=== PATIENT | female | born 1925 | race Caucasian/White ===

== ENCOUNTER 2017-02-12 18:34 | Observation (INO) | payer MEDICARE, BC ==
[~2017-02-12] VITALS: Ht 154.9 cm; Wt 57.4 kg
[~2017-02-12 18:34] MED LIST changes: -QUETIAPINE FUMA50 M1 PO; -ZITHROMAX Z-PA250 M2 PO
[2017-02-12 19:50] VITALS: BP 102/62
[2017-02-12 20:01] VITALS: BP 102/62
[2017-02-12] MEDS ORDERED: QUETIAPINE FUMA50 M1 PO (20:34)
[2017-02-12 23:29] VITALS: BP 124/63
[2017-02-13 04:28] VITALS: BP 100/56
[2017-02-13 07:40] VITALS: BP 110/59
[2017-02-13 07:55] VITALS: BP 100/56
--- NOTE | 2017-02-13 07:59 | ACUTE CARE PROGRESS NOTE (QUA) ---
Progress Notes Subjective Date 02/13/17 Time 0758 Note Patient overnight did well. CT for PE protocol unremarkable except for some patchy infiltrates consistent with bronchitis. This morning she feels well. Pulse rate has declined to normal, and her lung thompson are clear, heart regular, abdomen soft Objective Findings Last VS-Temp:98.4 B/P:100/56 Pulse:96 Resp:16 SaO2:95 ROOM AIR Last weight lbs:126 oz:8 K.380 Method:Bed Scales Assessment/Plan Problem List 1. Tachycardia 2. Elevated d-dimer Patient condition Improving, ccheck ultrasound Dopplers of legs, if negative discharge home with coverage for bronchopneumonia. This inpt stay is expected to cross 2 MNs from start of care No at 2156
--- NOTE | 2017-02-13 08:06 | PHARMACY CLINIC NOTE ---
Patient Demographics Patient Demographics Admission date: 02/12/17 Date: 02/13/17 Time: 0806 Allergies Coded Allergies: No Known Allergies (10/18/16) HEIGHT- FT: 5 IN: 1.00 K.380 VTE General Information Disclaimer The following section includes nursing documentation that has been pulled in for pharmacy review. Clinical trial participant? No VTE prophylaxis [id number] VTE prophylaxis ordered? Yes Type of prophylaxis/treatment: Lovenox at 0806
[2017-02-13 08:09] LABS: LYMPH # 3.4 K/mm3 (0.7-4.5); LYMPH % 32.1 % (10-50.0)
[2017-02-13 08:15] LABS: HEMOGLOBIN 11.8 g/dL (12.2-16.2)
--- NOTE | 2017-02-13 09:11 | CARDIOVASCULAR REPORT ---
"Venous Exam Indications: 729.5 Pain in limb. 729.81 Swelling of limb. IMPRESSIONS 1. There is no evidence of significant Reflux. 2. No evidence of deep or superficial vein thrombosis involving the left lower extremity 3. No evidence of deep or superficial vein thrombosis involving the right lower extremity Complete lower extremity venous duplex evaluation. Doppler flow study including spectral analysis, color and quinones scale imaging. Location: Bedside. Patient status: Inpatient. Tables: Venous flow and imaging: + +-------+ + |Location |Overall|Flow properties | + +-------+ + |Right common femoral |Patent |Normal phasicity; spontaneous; | | | |normal augmentation; compressible| + +-------+ + |Right saphenofemoral junction|Patent |Compressible | + +-------+ + |Right profunda femoral |Patent |Compressible | + +-------+ + |Right femoral |Patent |Normal phasicity; spontaneous; | | | |normal augmentation; | | | |compressible; no reflux | + +-------+ + |Right greater saphenous |Patent |Normal phasicity; spontaneous; | | | |normal augmentation; compressible| + +-------+ + |Right popliteal |Patent |Normal phasicity; spontaneous; | | | |normal augmentation; compressible| + +-------+ + |Right posterior tibial |Patent |Compressible | + +-------+ + |Right peroneal |Patent |Compressible | + +-------+ + |Right gastrocnemius |Patent |Compressible | + +-------+ + |Right soleal |Patent |Compressible | + +-------+ + |Left common femoral |Patent |Normal phasicity; spontaneous; | | | |normal augmentation; compressible| + +-------+ + |Left saphenofemoral junction |Patent |Compressible | + +-------+ + |Left profunda femoral |Patent |Compressible | + +-------+ + |Left femoral |Patent |Normal phasicity; spontaneous; | | | |normal augmentation; compressible| + +-------+ + |Left greater saphenous |Patent |Normal phasicity; spontaneous; | | | |normal augmentation; compressible| + +-------+ + |Left popliteal |Patent |Normal phasicity; spontaneous; | | | |normal augmentation; compressible| + +-------+ + |Left posterior tibial |Patent |Compressible | + +-------+ + |Left peroneal |Patent |Compressible | + +-------+ + |Left gastrocnemius |Patent |Compressible | + +-------+ + |Left soleal |Patent |Compressible | + +-------+ + (Report amended ) Electronically signed by: Zia Landaverde [id number]"
--- NOTE | 2017-02-13 09:35 | RADIOLOGY REPORT PS360 ---
CTA-CHEST HISTORY: Dyspnea, abnormal chest x-ray DYSPNEA ORDERING PHYSICIAN: Jose Manuel Syed MD PATIENT AGE: 89 years TECHNIQUE: Helical acquisition obtained following the bolus administration of 60 mL of Isovue 370 followed by a saline bolus. Axial, sagittal, and coronal reformatted images are generated and reviewed. COMPARISON: None FINDINGS: No evidence of pulmonary embolus, aortic aneurysm or aortic dissection. Lung apices are excluded. Soft tissue density is present in the left paratracheal region measuring 2.4 cm probably related to substernal goiter. CT neck with upper chest may confirm. There is some minimal tracheal deviation toward the right. No hilar adenopathy evident. Generalized motion artifact is present somewhat obscuring fine detail of the lungs. There is mild prominence of the interstitium with atelectatic and/or fibrotic changes in the lung bases posteriorly slightly more prominent on the left. No lobar consolidation or collapse or effusion evident. Upper abdominal images are unremarkable. IMPRESSION: 1. No evidence of pulmonary embolus or aortic aneurysm. 2. Anterior mediastinal mass on the left superiorly which could be due to substernal goiter. Adenopathy is also a consideration. Consider CT of the neck to include upper chest for further evaluation. 3. Chronic interstitial changes with mild fibrotic changes in the lung bases.
[2017-02-13] MEDS ORDERED: ZITHROMAX Z-PA250 M2 PO (10:15)
--- NOTE | 2017-02-13 10:17 | DISCHARGE SUMMARY STANDARD ---
Demographics Admit date: 02/12/17 Discharge date: 02/13/17 History of present illness History of present illness Patient was admitted from my office with tachycardia, positive d-dimer for rule out of pulmonary embolism. She denies symptoms, except with slightly more anxious than normal. Please see written H&P in the chart for details. Hospital Course Hospital Course: Patient was admitted,other labs were unremarkable, CT scan of chest with PE protocol was unremarkable except for areas of patchy infiltrate consistent with viral versus atypical bronchopneumonia. Doppler of legs is also negative. Telemetry monitoring overnight showed normal return to sinus rhythm. Plan will be to discharge her home today with azithromycin pack and close followup in the office. Discharge diagnoses Problem List 1. Tachycardia 2. Elevated d-dimer Medications Medications: Discharge meds are as noted. Follow up Follow up in office in: 4 DAYS with: Jose Manuel Syed MD at 1010
[2017-02-13 10:49] VITALS: BP 100/56
[2017-02-13 11:46] VITALS: BP 108/61
== END 2017-02-13 14:30 | disposition home or self-care (01) ==
LOC: 2ND 18:34
PROVIDERS: Internal Medicine Adolescent Medicine
DX: R00.0 Tachycardia, unspecified (principal); R79.1 Abnormal coagulation profile; R06.00 Dyspnea, unspecified; J18.9 Pneumonia, unspecified organism; M79.605 Pain in left leg; M79.604 Pain in right leg
CPT/HCPCS: G0378; Q9967

== ENCOUNTER → 2017-02-12 | Outpatient (CLI) | payer MEDICARE, BC ==
[~2017-02-12] MED LIST: ADULT LOW DOSE81 MG PO; ALPRAZOLAM0.25 M2 PO; CENTRUM SILVER1 EACH PO; GABAPENTIN100 M1 PO; HYDROXYZINE 25M25 MG PO; METHYLPHENIDATE5 MG PO; QUETIAPINE FUMA50 M1 PO; ZITHROMAX Z-PA250 M2 PO
[2017-02-12 17:36] LABS: HEMOGLOBIN 13.5 g/dL (12.2-16.2); LYMPH # 2.2 K/mm3 (0.7-4.5); LYMPH % 16.1 % (10-50.0)
[2017-02-12 17:51] LABS: URINE BILIRUBIN - DIPSTICK NEGATIVE (NEG); URINE BLOOD 1+ (NEG)
[2017-02-12 20:54] LABS: BUN 13 mg/dL (7-18)
[2017-02-12 20:56] LABS: GFR (ESTIMATED) 47 ML/MIN (59-)
--- NOTE | 2017-02-13 06:44 | RADIOLOGY REPORT PS360 ---
CHEST(2 VIEWS-NOT PORTABLE) HISTORY: TACHYCARDIA ORDERING PHYSICIAN: Jose Manuel Syed MD PATIENT AGE: 89 years COMPARISON: 12/11/2016 FINDINGS: The cardiomediastinal silhouette and pulmonary vascularity are within normal limits. Chronic interstitial changes once again noted. The vague area of increased density previously described in the right mid to lower lung zone and left lower lobe are once again noted. Consistent patchy areas of chronic infiltrate.. No acute bony abnormalities. IMPRESSION: Chronic changes with chronic areas of patchy infiltrate in right and left lower lung zones. No change with no acute finding
== END ==
LOC: LAB 17:18 → RAD 17:18
PROVIDERS: Internal Medicine Adolescent Medicine
DX: R00.0 Tachycardia, unspecified (principal); R10.84 Generalized abdominal pain

== ENCOUNTER → 2017-07-01 | Outpatient (CLI) | payer MEDICARE, BC ==
[~2017-07-01] MED LIST changes: +QUETIAPINE FUMA50 M1 PO; +ZITHROMAX Z-PA250 M2 PO
[2017-07-01 16:14] LABS: LYMPH # 2.6 K/mm3 (0.7-4.5); LYMPH % 29.9 % (10-50.0)
[2017-07-01 16:20] LABS: HEMOGLOBIN 13.8 g/dL (12.2-16.2)
[2017-07-01 17:33] LABS: BUN 13 mg/dL (7-18); GFR (ESTIMATED) 59 ML/MIN (59-)
== END ==
LOC: LAB 15:45
PROVIDERS: Internal Medicine Adolescent Medicine
DX: R27.0 Ataxia, unspecified (principal)

== ENCOUNTER 2017-07-25 09:40 | Emergency (ER) | payer MEDICARE, BC ==
[~2017-07-25] VITALS: Ht 154.9 cm; Wt 57.2 kg
--- NOTE | 2017-07-25 10:05 | Emergency Room Report ---
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 N Clinical Suspician of Infection? N Mental Status: 1 - Regular (Normal Baseline) Sepsis Risk:Low Sepsis Risk Have you (or family members/close friends) recently traveled outside the [place]? N If Yes, where/when: Have you had exposure to infectious disease within the past month? TB? Other? Specify: Patient has been calling her daughter 10-15 times a day over the past 3 days of daughter states that she has history of anxiety attacks and appears to be having anxiety attacks at home she hyperventilates with these attacks she has never had any particular problem that she complains about with her anxiety per the daughter she just has anxiety attacks. Patient denies any pain she states she has a little bit of cough which is chronic and dry she denies any fevers or chills he denies nausea vomiting diarrhea denies any headache chest pain or abdominal pain. She was hyperventilating earlier per staff she is currently not hyperventilating. Her daughter states that she usually breathes fast when she gets anxious. Her daughter states she wants her to get checked out since her anxiety attacks of become more frequent over the past couple days and that the doctor's office was full. She denies any precipitant or problems that have caused her anxiety this time which the daughter states is normal, denies any suicidal ideation. ALLERGIES Coded Allergies: No Known Allergies (07/25/17) Home Medications Active Scripts Alprazolam 0.25 MG PO BID PRN ANXIETY #15 TAB Prov: 10/19/16 Azithromycin (Zithromax) 250 MG PO DAILY #6 TAB Prov: 02/13/17 Reported Medications Aspirin (Adult Low Dose Aspirin EC) 81 MG PO DAILY Multivit-Min/FA/Lycopene/Lut (Centrum Silver Tablet) 1 EACH PO DAILY Gabapentin (Gabapentin 100MG) 200 MG PO QHS Hydroxyzine Pamoate (Hydroxyzine) 25 MG PO BIDP PRN ANXIETY Quetiapine Fumarate 50 MG PO QHS History Medical History General CAD? No Angina: No [place]: No Hypertension? Yes Hyperlipidemia? Yes CHF? No DVT? No PE? No COPD? No Asthma? No Anemia? No GERD? No Gastric ulcers? No GI Bleed? No Hernia? No Thyroid Problems? No Hypothyroidism? No CVA? No Seizures? No Diabetes? No Renal Insuffiency? No End Stage Renal Disease? No UTI? No Stones? No BPH? No GB Disease: No Nephritic Syndrome? No Asplenia? No Hepatitis? No Sickle Cell Disease? No Arthritis? Yes Migraines? No Cataracts? Yes Glaucoma? No MRSA? No HIV? No TB? No Anxiety? Yes Depression? No Cancer? No More? 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 Hx Comment N Family History Family Hx Diabetes No CAD No Hypertension No Hyperlipidemia No Cancer No TB No Social History Smoking Hx Smoker: Never Smoker Tobacco: No Type N/A Are you/the child exposed to second-hand smoke: No Alcohol Alcohol: No Review of Systems All Other Systems Reviewed and Negative Constitutional denies no symptoms reported Physical Exam Vital Signs Vital Signs Date Time Temp Pulse Resp B/P Pulse O2 O2 Flow FiO2 Ox Delivery Rate 07/25 09 93 121/72 07/25 0958 105 123/70 07/25 0958 95 119/78 07/25 0946 98.1 107 18 119/78 99 General Appearance: Nontoxic Head: Normocephalic, without obvious abnormality, atraumatic. Eyes: conjunctiva/corneas clear ENT: Mucous membranes moist. Neck: No jugular venous distention. Cardiac: regular rate and rhythm Lungs: Clear to auscultation bilaterally Abdomen: Nontender, Nondistended, positive bowel sounds, no rebound : No CVA tenderness Extremities: no edema Musculoskeletal: No chest wall tenderness Skin: No rashes or lesions to exposed skin. Neurologic: Alert. No gross focal deficits Psychiatric: Normal affect (Cabrera GUTIÉRREZ, Kirk) General Appearance normal appearance Respiratory Status No: respiratory distress. Cardiovascular no JVD Neurologic alert Medical Decision Making LABS/Meds/Orders Pt receiving controlled substance in ED? No Comment 1159 she denies any pain or problems she desires to go home, just with her to follow up with her family doctor for recheck return if worse. Results/Orders Laboratory Tests 07/25/17 1025: Sodium 138, Potassium 4.2, Chloride 104, Carbon Dioxide 32, BUN 15, Creatinine 0.9, Estimated Creat Clear 38 L, Estimated GFR (MDRD) 59, Glucose 105, Calcium 9.6, Total Bilirubin 0.4, AST 14 L, ALT 14, Alkaline Phosphatase 77, Troponin I < 0.02, Total Protein 7.6, Albumin 3.4, Globulin 4.2 H, Albumin/Globulin Ratio 0.8 L, WBC 6.3, RBC 4.59, Hgb 12.7, Hct 39.1, MCV 85.1, RDW 13.1, Plt Count 326 , MPV 6.8 L, Gran % 60.1, Gran # 3.8, Lymphocytes % 29.3, Monocytes % 5.9, Eosinophils % 3.4, Basophils % 1.3, Lymphocytes # 1.8, Monocytes # 0.4, Eosinophils # 0.2, Basophils # 0.1, PUBS MCHC 32.4, MCH 27.6 Current Medication Orders Sig/Jeff Start time Last Medication Dose Route Stop Time Status Admin Sodium Chloride 10 ML PRN PRN 07/25 1030 AC IV 07/26 1018 Orders Procedure Date/time Status IV SALINE LOCK 07/25 1018 Active 12 [facility]AD [facility] 07/25 1005 Active ELECTROCARDIOGRAM REQUEST 07/25 1005 Active CHEST(2 VIEWS-NOT PORTABLE) 07/25 1005 Active URINALYSIS/COMPLETE 07/25 1005 Active TROPONIN I 07/25 1005 Complete CBC WITH AUTO DIFF 07/25 1005 Complete CHEM 12 PROFILE 07/25 1005 Complete 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 Rhythm Normal Sinus Rhythm Rate 78 Ectopy No Comments And LEFT anterior fascicular block / interventricular conduction delay, LEFT axis deviation nonspecific electrocardiogram XRAY/CT/US XRAY/CT/US XRAY chest XR interpretation by reviewed by me Xray Results Possible hazy LEFT lower lobe infiltrate Departure Departure Time of Disposition 1154 Disposition DC Home or Self Care(routine) Clinical Impression Primary Impression: Anxiety Secondary Impressions: Bronchitis Condition STABLE Patient Instructions Acute Bronchitis, DI for Anxiety -- Adult Additional Instructions call your doctor for recheck. Take antibiotics as prescribed and return if worse or if any pain develops Discharge Counseling Counseled pt/family regarding diagnosis, test results, medications/RX, home care, follow up needs Prescriptions Current Visit Scripts Azithromycin (Zithromycin (Z-MG) 250MG Tab) 250 MG PO DAILY #6 TAB TAKE TWO (2) TABLETS ON DAY 1, THEN ONE (1) TABLET DAY #2 THRU #5 ED Critical Care Critical Care No If Critical Care minutes are documented, the time involved in the performance of seperately reportable procedures was not counted toward critical care time documented. I directly delivered medical care to this critically ill and/or injured patient. Timely evaluation and treatment was necessary to address the significant organ system(s) dysfunction present in this patient. at 1200
[2017-07-25 10:39] LABS: HEMOGLOBIN 12.7 g/dL (12.2-16.2); LYMPH # 1.8 K/mm3 (0.7-4.5); LYMPH % 29.3 % (10-50.0)
[2017-07-25 10:48] LABS: BUN 15 mg/dL (7-18)
[2017-07-25 10:51] LABS: GFR (ESTIMATED) 59 ML/MIN (59-)
[2017-07-25] MEDS ORDERED: ZITHROMAX Z PA250 MG PO (11:58)
[2017-07-25 12:07] VITALS: BP 118/70
--- NOTE | 2017-07-25 12:32 | RADIOLOGY REPORT PS360 ---
CHEST(2 VIEWS-NOT PORTABLE) HISTORY: Shortness of breath sob/hyperventilating resolved ORDERING PHYSICIAN: Kirk Rees MD PATIENT AGE: 89 years COMPARISON: 02/12/2017 FINDINGS: The cardiomediastinal silhouette and pulmonary vascularity are within normal limits. There are chronic changes in the left lower lobe which are similar when compared to the previous exam. The remaining lungs are clear.. COPD Degenerative change thoracic spine. IMPRESSION: Chronic changes left lower lobe with COPD
== END 2017-07-25 12:08 | disposition home or self-care (01) ==
LOC: ER 09:40
PROVIDERS: Emergency Medicine
DX: J20.9 Acute bronchitis, unspecified (principal); Z79.82 Long term (current) use of aspirin; I10 Essential (primary) hypertension; E78.5 Hyperlipidemia, unspecified